=== PATIENT | male | born 1975 | race Caucasian/White ===

== ENCOUNTER 2016-09-21 18:10 | Emergency (ER) | payer BC ==
[2016-09-21] MEDS ORDERED: Ondansetron INJ* 2 MG/ML VIAL IV ONE (19:30)
[2016-09-21] MEDS ORDERED: Diphth/Teta/Acell Pertusis* 0.5 ML VIAL ** FOR 6 WKS TO 7 YRS OLD IM ONE (19:30)
[2016-09-21] MEDS ORDERED: Morphine INJ* 4 MG/ML 1 ML SYRINGE IV ONE (19:30)
[2016-09-21] MEDS ORDERED: NS 0.9% 1000 ML* 1,000 ML IV ONE (19:30)
[2016-09-21 19:42] LABS: Hematocrit 43 % (42-52); Hemoglobin 13.9 g/dl (14.0-18.0); Mean Corpuscular HGB Conc 33 g/dl (31-36); Mean Corpuscular Hemoglobin 28 pg (27-31); Mean Corpuscular Volume 85 fL (80-94); Mean Platelet Volume 8 um3 (7.4-10.4); Red Blood Count 4.98 10^6/ul (4.0-5.4); Red Cell Distribution Width 13 % (10.5-15); White Blood Count 24.3 10^3/ul (3.5-10.8)
[2016-09-21 19:43] LABS: Add Diff/Slide Review? Slide Review Added; Comments Flag Yes
[2016-09-21 19:56] LABS: Albumin 4.5 g/dL (3.2-5.2); BUN/Creatinine Ratio 23.8 (8-20); Calcium 9.9 mg/dL (8.6-10.3); EGFR African American 100.1 (>60); EGFR Non-African American 77.8 (>60); Globulin 2.8 g/dL (2-4); Total Bilirubin 0.4 mg/dL (0.2-1.0); Total Protein 7.3 g/dL (6.4-8.9)
[2016-09-21 19:57] LABS: Potassium 4.2 mmol/L (3.5-5.0)
[2016-09-21] MEDS ORDERED: Tetan/Diph/Pertus SYR(Tdap)* 0.5 ML SYR(BOOSTRIX) use SYR IM ONE (19:59)
[2016-09-21] MEDS ORDERED: Iohexol 300* (CONTRAST) 10 ML SDV IV ONE (20:02)
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
[2016-09-21] MEDS ORDERED: HYDROcodone/ACETAMIN 5-325 MG* 1 TAB PO ONE (22:55)
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
[2016-09-21 23:14] VITALS: BP 133/86
== END 2016-09-21 23:14 | disposition home or self-care (01) ==
LOC: ED 18:10
DX: S42.002A Fracture of unspecified part of left clavicle, initial encounter for closed fracture (principal); S60.512A Abrasion of left hand, initial encounter; V29.9XXA Motorcycle rider (driver) (passenger) injured in unspecified traffic accident, initial encounter; Y93.9 Activity, unspecified; Y92.9 Unspecified place or not applicable; M54.5 Low back pain
CPT/HCPCS: 36415; 70450; 71260; 72125; 72131; 74177; 80053; 85025; 90715; 93005; 99283; J2270; J2405; Q9967

== ENCOUNTER 2018-10-09 16:21 | Inpatient (IN) | payer BC ==
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
[2018-10-09] MEDS ORDERED: LORazepam INJ* 2 MG/ML 1 ML VIAL IM ONE (16:43)
[2018-10-09] MEDS ORDERED: diPHENhydraMINE IV* 50 MG/ML 1 ml VIAL (BENADRYL) IM ONE (16:43)
[2018-10-09] MEDS ORDERED: Haloperidol INJ IV/IM* 5 MG/ML AMP IM ONE (16:43)
[2018-10-09] MEDS ORDERED: Haloperidol TAB* 5 MG PO ONE (16:54)
[2018-10-09] MEDS ORDERED: LORazepam TAB(*) 1 MG PO ONE (16:54)
[2018-10-09] MEDS ORDERED: diPHENhydraMINE PO* 50 MG PO ONE (16:54)
[2018-10-09 17:53] LABS: ABS Basophils 0.1 10^3/ul (0-0.2); ABS Lymphocytes 1.1 10^3/ul (1.0-4.8); ABS Monocytes 0.7 10^3/ul (0-0.8); ABS Neutrophils 12.1 10^3/ul (1.5-7.7); Eosinophil % 0.1 %; Hematocrit 45 % (42-52); Hemoglobin 15.7 g/dL (14.0-18.0); Lymphocyte % 8.1 %; Mean Corpuscular HGB Conc 35 g/dL (31-36); Mean Corpuscular Hemoglobin 30 pg (27-31); Mean Corpuscular Volume 85 fL (80-94); Mean Platelet Volume 7.4 fL (7.4-10.4); Nucleated Red Blood Cells % 0.1; Platelet Count 321 10^3/uL (150-450); Red Blood Count 5.26 10^6 /uL (4.18-5.48); Red Cell Distribution Width 13 % (10-15); White Blood Count 13.9 10^3/uL (3.5-10.8)
[2018-10-09 18:11] LABS: ALT 17 U/L (7-52); AST 16 U/L (13-39); Albumin 4.3 g/dL (3.2-5.2); Albumin/Globulin Ratio 1.6 (1-3); Alkaline Phosphatase 50 U/L (34-104); Anion Gap 10 mmol/L (2-11); BUN/Creatinine Ratio 18.2 (8-20); Blood Urea Nitrogen 18 mg/dL (6-24); CO2 Carbon Dioxide 23 mmol/L (22-32); Calcium 9.6 mg/dL (8.6-10.3); Chloride 104 mmol/L (101-111); EGFR African American 99.8 (>60); EGFR Non-African American 82.5 (>60); Globulin 2.7 g/dL (2-4); Glucose 226 mg/dL (70-100); Potassium 4.2 mmol/L (3.5-5.0); Sodium 137 mmol/L (135-145)
[2018-10-09 18:27] LABS: Acetaminophen < 15 mcg/mL; Alcohol < 10 mg/dL (<10); Salicylate < 2.50 mg/dL (<30)
[2018-10-09 18:42] LABS: TSH (Thyroid Stimulating Horm) 1.47 mcIU/mL (0.34-5.60)
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
--- NOTE | 2018-10-10 08:39 | ED ---
Progress - Progress Note Progress Note: Patient is received as a sign out from Dr. Gonzalez to Dr. Marin at 0700 10/10/18 shift change as a mental health hold pending disposition. 1417 - Patient's case had been reviewed by Dr. Joy, patient will be a voluntary admit to [facility] with a diagnosis of depression. - Consult/PCP Time Called: 19:25 Re-Evaluation - Re-Evaluation First Eval Re-Evaluation Time: 14:17 Comment: MH worker reports that the patient will be a voluntary admit Course/Dx - Diagnoses Provider Diagnoses: Depression - Provider Notifications Discussed Care Of Patient With: Jessica Joy Time Discussed With Above Provider: 14:17 Instructed by Provider To: Other - 1417 - Patient's case had been reviewed by Dr. Joy, patient will be a voluntary admit to [facility] with a diagnosis of depression. Discharge - Sign-Out/Discharge Documenting (check all that apply): Patient Departure - admit - Discharge Plan Condition: Good Disposition: [place]IATRIC [place]AC[place] [place] Billing Disposition and Condition Condition: GOOD Disposition: Psychiatric Facility [facility] [place] - Attestation Statements Document Initiated by Scribe: Yes Documenting Scribe: CHINMAY ROSS Provider For Whom Scribe is Documenting (Include Credential): YENNIFER MARIN MD Scribe Attestation: CHINMAY Harley, raphaelibed for YENNIFER MARIN MD on 10/10/18 at 1443. Scribe Documentation Reviewed: Yes Provider Attestation: The documentation as recorded by the CHINMAY lott accurately reflects the service I personally performed and the decisions made by me, YENNIFER MARIN MD Status of Scribe Document: Viewed
[2018-10-10] MEDS ORDERED: Al Hydrox/Mg Hydrox/Simet LIQ* 30 ML UDC PO PRN (17:54)
--- NOTE | 2018-10-10 18:27 | HP ---
HISTORY AND PHYSICAL: DATE OF ADMISSION: 10/10/18 IDENTIFYING DATA: Vinh is a 42-year-old male with known history of two prior psychiatric hospitalizations in his teenage years who was brought into the emergency room by law enforcement because of some disturbances in his household. 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 There were some disturbances, which Vinh thinks because of his being pissed off at home with his and his called police yesterday. When the police showed up he resisted arrest and was uncooperative with the police and they needed to tase him before they brought in the emergency room. Since he came to the emergency room he was very uncooperative with the evaluation process and the psychotic evaluators were unable to get much information from him other than him stating that his wanted him to get some help and he was brought in here by the police. However, reports from his and a neighbor who happens to be a mental health professional indicated that Vinh has been having some difficulty managing his anger and frustration at home and at school. Vinh reports that in July of this year he threw some papers on the floor when he was really upset with someone and he was suspended from school for that behavior. He does not know exactly what will happen to his job. His believes that he has been having this mood dysregulation even if he was taking his medications. In other words, she believes the medications were not working, so they decided to stop all the medications that he was taking which made it worse. Vinh believes that he has been more depressed and stayed to himself most of the time, not wanting to be bothered by anybody. If anybody did say anything to him he gets upset, in his words he states he gets pissed off and yells at them and he also believes that since he is a big khushbu his screaming and yelling scares everybody. He reported that he has been depressed most of the time with low self-esteem, low self worth, helplessness, hopelessness, and thinking about suicide, but not acting on it. Vinh has a history of attempting suicide at least a couple of times for which he needed hospitalizations in [place] as well as [place] and [facility] I believe. He has been on Effexor for more than 3 years, which apparently stopped working. There is no indication that he was ever put on any mood stabilizer. His stresses include financial problems and some conflict with his related to his dysregulated mood mostly. He has been with his for approximately 20 years and has 3 children. PAST PSYCHIATRIC HISTORY: As mentioned in HPI he had at least 2 prior hospitalizations one in [facility] the other one is in [facility]. SUBSTANCE ABUSE HISTORY: Although, Vinh has a history of alcohol use disorder in the past. He has not been drinking since 2010 and maintained his sobriety. Denies using any drugs. PAST MEDICAL HISTORY: It is remarkable for insulin-dependent diabetes mellitus for which he takes metformin and glipizide also he is on Lantus. ALLERGIES: No known drug allergies. FAMILY PSYCHIATRIC HISTORY: Vinh reports that one of his older sisters, who is the oldest of all, suffers from bipolar and is undergoing treatment. He also believes his kids may have shown some signs and symptoms of bipolarity. PERSONAL AND SOCIAL HISTORY: Vinh grew up in [place] [place] [facility] after finishing his master's with math major. 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 He has been for more than 16 years and has 3 children 9, 11, and 14. He reports that his marriage is fine, no issues with that, only problem is that the potential for loss of his job because of his mood problems and fear that he might go into financial problem. He is getting paid for now until a decision is made about what the school will do. He denies any legal problems. PHYSICAL EXAMINATION Physical exam was not performed as Vinh still in the emergency room. I reviewed the physicals and labs done in the emergency room, which were pretty much unremarkable except for his lab shows a high WBC count of 13.9. His vitals taken in the emergency room shows a blood pressure of 188/141 with a pulse rate of 125 and respiration 20. At this time, I will ask the ED doctors to address his blood pressure and high blood sugar problems that hvets been without treatment. MENTAL STATUS EXAMINATION: Vinh was a appropriately dressed, neatly groomed with shaven head 42-year-old male who appears to be of his state stated age. He is alert and oriented to time, place, and person. Describes his mood as depressed, observed affect appears to be dysphoric and irritable. Makes very poor eye contact. Speech is soft and slow, but goal directed. Denies any allegations, delusion, current suicidal or homicidal ideations. His intelligence appears to be average as evidenced by his educational background vocabulary and fund of knowledge. Memory and functions are intact in all spheres. His insight and judgment appears to be poor. 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 His neighbors also called to report that Vinh has been experiencing some mood swings and anger outbursts scaring his family members and needed to be treated for. He is being hospitalized for further evaluation and stabilization of his mood dysregulation. DIAGNOSTIC IMPRESSION: Major depressive disorder, recurrent severe without psychotic creatures, rule out bipolar disorder. PHYSICAL DIAGNOSES: 1. Insulin-dependent diabetes mellitus. 2. Essential hypertension. TREATMENT RECOMMENDATIONS: Vinh will remain hospitalized on behavioral science unit for his and others' safety. Supportive milieu, individual, and group therapy will be initiated. His code status will remain full. I have not had a chance to talk to him about any change of medications and I will defer his medication to his assigned psychiatrist. If I have a time to talk to him after he comes to the unit, I will definitely start him on something most possibly one of those which will not trigger his bipolar symptoms. [id number]/CPS #: [id number] [facility] CENTERMaria Alejandra
[2018-10-10] MEDS: Insulin GLARGINE(*) 1 UNITS UNIT SUBCUT SCH (20:59)
[2018-10-11] MEDS: Acetaminophen TAB* 325 MG PO PRN (06:17)
[2018-10-11 09:11] LABS: HDL Cholesterol 29.9 mg/dL
--- NOTE | 2018-10-11 11:31 | PN ---
BSU: Group Therapy Note - Service Type Service Type: [id number] Group Psychotherapy - Cognitive Behavioral Group Therapy ( CBT):Patient was attentive and participatory in CBT programming this morning, and remained in good behavioral control. Patient expressed positive insights regarding relevant treatment interventions and goals.
[2018-10-11] MEDS: Vitamin THERAPEUTIC TAB PO SCH (12:01)
--- NOTE | 2018-10-11 14:27 | PN ---
Subjective - Subjective Date of Service: 10/11/18 Service Type: 02171 Hosp care 25 min moderate complexity Subjective: Patient noted to pace about unit and do push-ups in an alcove. He is pleasant upon approach, participates in conversation. Patient reports long history of agitation and difficulty with anger outbursts since adolescence. He endorses periods of decreased need of sleep and increased activities. He reports being diagnosed with "atypical bipolar" in [address] Rogers. He reports taking aripiprazole for over a year but stopped when diagnosed with diabetes mellitus. Patient states he continued with venlafaxine up to 225mg for the past 3 years but stopped last july. He goes on to describe that "it wasn't working." He reports he experiences mood swings, depressed mood, isolation, hypersomnia and anhedonia. Patient notified of a1c of 10.8, states this is improved from last reading of 12. He agrees to titration of Latuda, notified of improved metabolic profile compared to aripiprazole. We also discussed use of clonidine prn anxiety. Objective - General Observations Appearance: Well Groomed Stature: WNL Posture: Slumped Eye Contact: Intermittent Behavior/Activity: Peculiar - Interaction Observations Attitude Towards Examiner: Cooperative Stated Mood: Irritable Affect: Restricted Speech Pattern/Tone: Clear, Appropriate, Quiet Volume Thought Process: Impoverished Thought Content: Depressive Thought Process: Lethality: Passive Wish Hallucination Type: Denies Delusion Type: Denies - Cognitive Function Orientation: A&O x 4 Level of Consciousness: Alert Cognition: WNL Estimated Intelligence: Normal Insight: WNL Judgment Within Normal Limits: No Ability to Make Reasonable Decisions: Moderately Impaired - Medication Compliance Cooperative with Inpatient Medication Regimen: Yes - Group Participation Participates in Group Activities: Yes Assessment - Assessment Merits Inpatient Hospitalization: For Immediate Safety, For Stabilization Inpatient DSM-V Dx: F31.9 Clinical Impression: 42yo white male, with children, domiciled, employed with history 2-3 previous psychiatric hospitalizations due to suicide attempts who presented to ED via police after phoned due to anger outbursts at home and concern for suicidality. He merits hospitalization for immediate safety and stabilization. Plan - Plan Treatment Plan: Name: RAMON MOONEY Birthdate: 1975 [id number] continue acute intensive psychiatric treatment. verified medications from Dr Ramirez's office: glipizide 5mg TID with meals, metformin 1000mg BID and lantus 50unit daily. start lurasidone 20mg with dinner, clonidine 0.1mg BID prn anxiety/agitation. obtain MMPI for diagnostic clarification. discharge planning to include family and outpatient providers Continued Medication Management: Start Medication Medications: Current Medications Acetaminophen (Tylenol Tab*) 650 mg PO Q4H PRN PRN Reason: PAIN or TEMP > 101 F Last Admin: 10/11/18 06:17 Dose: 650 mg Al Hydrox/Mg Hydrox/Simethicone (Maalox Plus*) 30 ml PO Q4H PRN PRN Reason: INDIGESTION Clonidine HCl (Catapres Tab*) 0.1 mg PO BID PRN PRN Reason: AGITATION/ANXIETY Glipizide (Glucotrol Tab*) 5 mg PO TID WITH MEALS [facility] Insulin Glargine (Lantus(*)) 50 units SUBCUT BEDTIME [facility] Last Admin: 10/10/18 20:59 Dose: 50 unit Lurasidone HCl (Latuda) 20 mg PO 1700 [facility] Metformin HCl (Glucophage*) 1,000 mg PO BID [facility] Multivitamins (Theragran Tab*) 1 tab PO DAILY [facility] Last Admin: 10/11/18 12:01 Dose: Not Given - Discharge Plan Discharge Plan: Inpatient Hospitalization
[2018-10-11] MEDS: glipiZIDE TAB* 5 MG PO SCH (16:47)
[2018-10-11] MEDS: Lurasidone(*) 20 MG TAB PO SCH (17:27)
[2018-10-11] MEDS: Insulin GLARGINE(*) 1 UNITS UNIT SUBCUT SCH (20:59)
[2018-10-11] MEDS: metFORMIN* 1,000 MG TAB PO SCH (21:00)
[2018-10-12] MEDS: metFORMIN* 1,000 MG TAB PO SCH ×2 (09:03→20:27)
[2018-10-12] MEDS: Vitamin THERAPEUTIC TAB PO SCH (09:03)
[2018-10-12] MEDS: glipiZIDE TAB* 5 MG PO SCH ×3 (09:03→17:00)
[2018-10-12] MEDS: cloNIDine TAB* 0.1 MG PO PRN (12:27)
--- NOTE | 2018-10-12 15:07 | PN ---
Subjective - Subjective Date of Service: 10/12/18 Service Type: [id number] Hosp care 15 min low complexity Subjective: Patient reports mild nausea today and that he slept better than he has been. He endorses anxiolytic effect with prn clonidine. patient endorses depressed mood with irritability. Patient identifies that anger outbursts have been more difficult to control over the years. He states that he typically retreats to the barn to "break stuff" then this escalates when he is angry that he broke his wood-working projects. Objective - General Observations Appearance: Well Groomed Stature: Overweight Posture: WNL Eye Contact: Intermittent Behavior/Activity: WNL - Interaction Observations Attitude Towards Examiner: Cooperative Stated Mood: Dysphoric, Irritable Affect: Restricted Speech Pattern/Tone: Clear, Quiet Volume Thought Process: Coherent Perception: WNL Thought Content: Depressive Thought Process: Lethality: Passive Wish Hallucination Type: None Delusion Type: None - Cognitive Function Orientation: A&O x 4 Level of Consciousness: Alert Cognition: WNL Estimated Intelligence: Normal Insight: WNL Judgment Within Normal Limits: Yes Ability to Make Reasonable Decisions: Mildly Impaired - Medication Compliance Cooperative with Inpatient Medication Regimen: Yes - Group Participation Participates in Group Activities: Yes Assessment - Assessment Merits Inpatient Hospitalization: For Immediate Safety, For Stabilization Inpatient DSM-V Dx: F31.9 Clinical Impression: 42yo white male, with children, domiciled, employed with history 2-3 previous psychiatric hospitalizations due to suicide attempts who presented to ED via police after phoned due to anger outbursts at home and concern for suicidality. He merits hospitalization for immediate safety and stabilization. Plan - Plan Treatment Plan: Name: RAMON MOONEY Birthdate: 1975 [id number] continue acute intensive psychiatric treatment. verified medications from Dr Ramirez's office: glipizide 5mg TID with meals, metformin 1000mg BID and lantus 50unit daily. continue lurasidone 20mg with dinner, clonidine 0.1mg BID prn anxiety/ agitation. consider depakote. discharge planning to include family and outpatient providers Continued Medication Management: Consider Medication Medications: Current Medications Acetaminophen (Tylenol Tab*) 650 mg PO Q4H PRN PRN Reason: PAIN or TEMP > 101 F Last Admin: 10/11/18 06:17 Dose: 650 mg Al Hydrox/Mg Hydrox/Simethicone (Maalox Plus*) 30 ml PO Q4H PRN PRN Reason: INDIGESTION Clonidine HCl (Catapres Tab*) 0.1 mg PO BID PRN PRN Reason: AGITATION/ANXIETY Last Admin: 10/12/18 12:27 Dose: 0.1 mg Glipizide (Glucotrol Tab*) 5 mg PO TID WITH MEALS [facility] Last Admin: 10/12/18 12:23 Dose: 5 mg Insulin Glargine (Lantus(*)) 50 units SUBCUT BEDTIME [facility] Last Admin: 10/11/18 20:59 Dose: 50 unit Lurasidone HCl (Latuda) 20 mg PO 1700 [facility] Last Admin: 10/11/18 17:27 Dose: 20 mg Metformin HCl (Glucophage*) 1,000 mg PO BID [facility] Last Admin: 10/12/18 09:03 Dose: 1,000 mg Multivitamins (Theragran Tab*) 1 tab PO DAILY [facility] Last Admin: 10/12/18 09:03 Dose: Not Given - Discharge Plan Discharge Plan: Outpatient Follow Up
[2018-10-12] MEDS: Lurasidone(*) 20 MG TAB PO SCH (17:00)
[2018-10-12] MEDS: Insulin GLARGINE(*) 1 UNITS UNIT SUBCUT SCH (21:18)
[2018-10-13] MEDS: glipiZIDE TAB* 5 MG PO SCH ×3 (07:38→16:56)
[2018-10-13] MEDS: metFORMIN* 1,000 MG TAB PO SCH ×2 (09:01→21:20)
[2018-10-13] MEDS: Vitamin THERAPEUTIC TAB PO SCH (09:01)
--- NOTE | 2018-10-13 13:39 | PN ---
Subjective - Subjective Date of Service: 10/13/18 Service Type: [id number] Hosp care 15 min low complexity Subjective: patient reports noticing worsening mood midday. He states he utilized various techniques that he has known about and is proud of himself for actually putting them into practice. He reports sleeping well and benefitting from interactions with others. He c/o nausea and loose stools, denies these are problematic and expects these to be transient side effects. Patient agrees to titrate lurasidone dose. Objective - General Observations Appearance: Well Groomed Stature: Overweight Posture: Slumped Eye Contact: Average Behavior/Activity: WNL - Interaction Observations Attitude Towards Examiner: Cooperative Stated Mood: Dysphoric Affect: Full Speech Pattern/Tone: Clear, Appropriate, Normal Volume Thought Process: Coherent, Goal Directed Perception: WNL Thought Content: Depressive, Self-Deprecatory Thought Process: Lethality: Passive Wish Hallucination Type: Denies Delusion Type: Denies - Cognitive Function Orientation: A&O x 4 Level of Consciousness: Alert Cognition: WNL Estimated Intelligence: Normal Insight: WNL Judgment Within Normal Limits: Yes Ability to Make Reasonable Decisions: Moderately Impaired - Medication Compliance Cooperative with Inpatient Medication Regimen: Yes - Group Participation Participates in Group Activities: Yes Assessment - Assessment Merits Inpatient Hospitalization: For Immediate Safety, For Stabilization, For Discharge Planning, Pending Safe DC Plan Inpatient DSM-V Dx: F31.9 Clinical Impression: 42yo white male, with children, domiciled, employed with history 2-3 previous psychiatric hospitalizations due to suicide attempts who presented to ED via police after phoned due to anger outbursts at home and concern for suicidality. He merits hospitalization for immediate safety and stabilization. Plan - Plan Treatment Plan: Name: RAMON MOONEY Birthdate: 1975 [id number] continue acute intensive psychiatric treatment. verified medications from Dr Ramirez's office: glipizide 5mg TID with meals, metformin 1000mg BID and lantus 50unit daily. increase lurasidone to 40mg with dinner; continue clonidine 0.1mg BID prn anxiety/agitation. discharge planning to include referral to [facility]. Continued Medication Management: Start Medication Medications: Current Medications Acetaminophen (Tylenol Tab*) 650 mg PO Q4H PRN PRN Reason: PAIN or TEMP > 101 F Last Admin: 10/11/18 06:17 Dose: 650 mg Al Hydrox/Mg Hydrox/Simethicone (Maalox Plus*) 30 ml PO Q4H PRN PRN Reason: INDIGESTION Clonidine HCl (Catapres Tab*) 0.1 mg PO BID PRN PRN Reason: AGITATION/ANXIETY Last Admin: 10/12/18 12:27 Dose: 0.1 mg Glipizide (Glucotrol Tab*) 5 mg PO TID WITH MEALS [facility] Last Admin: 10/13/18 12:03 Dose: 5 mg Insulin Glargine (Lantus(*)) 50 units SUBCUT BEDTIME [facility] Last Admin: 10/12/18 21:18 Dose: 50 unit Lurasidone HCl (Latuda) 40 mg PO 1700 [facility] Metformin HCl (Glucophage*) 1,000 mg PO BID [facility] Last Admin: 10/13/18 09:01 Dose: 1,000 mg Multivitamins (Theragran Tab*) 1 tab PO DAILY [facility] Last Admin: 10/13/18 09:01 Dose: Not Given - Discharge Plan Discharge Plan: Inpatient Hospitalization
[2018-10-13] MEDS: Lurasidone(*) 40 MG TAB PO SCH (17:16)
[2018-10-13] MEDS: Insulin GLARGINE(*) 1 UNITS UNIT SUBCUT SCH (21:36)
[2018-10-14] MEDS: glipiZIDE TAB* 5 MG PO SCH ×3 (07:55→17:24)
[2018-10-14] MEDS: metFORMIN* 1,000 MG TAB PO SCH ×2 (07:55→20:24)
[2018-10-14] MEDS: Vitamin THERAPEUTIC TAB PO SCH (07:58)
[2018-10-14] MEDS: cloNIDine TAB* 0.1 MG PO PRN (12:08)
--- NOTE | 2018-10-14 13:15 | PN ---
Subjective - Subjective Date of Service: 10/14/18 Service Type: [id number] Hosp care 15 min low complexity Subjective: Patient is euthymic and interactive. He is tolerating increase in lurasidone without complaints. He has agreed to a referral to a partial hospitalization program. Objective - General Observations Appearance: Well Groomed Stature: WNL Posture: WNL Eye Contact: Average - Interaction Observations Attitude Towards Examiner: Cooperative, Anxious Stated Mood: Euthymic Affect: Bright Speech Pattern/Tone: Clear, Appropriate, Normal Volume Thought Process: Coherent, Goal Directed Perception: WNL Thought Content: Depressive Hallucination Type: None Delusion Type: None - Cognitive Function Orientation: A&O x 4 Level of Consciousness: Alert Cognition: WNL Estimated Intelligence: Normal Insight: WNL Judgment Within Normal Limits: Yes Ability to Make Reasonable Decisions: Moderately Impaired - Medication Compliance Cooperative with Inpatient Medication Regimen: Yes - Group Participation Participates in Group Activities: Yes Assessment - Assessment Inpatient DSM-V Dx: F31.9 Clinical Impression: 42yo white male, with children, domiciled, employed with history 2-3 previous psychiatric hospitalizations due to suicide attempts who presented to ED via police after phoned due to anger outbursts at home and concern for suicidality. He merits hospitalization for immediate safety and stabilization. He is at risk for harm to self and others if discharged prior to admission to partial hospitalization program. Plan - Plan Treatment Plan: Name: RAMON MOONEY Birthdate: 1975 [id number] continue acute intensive psychiatric treatment. verified medications from Dr Ramirez's office: glipizide 5mg TID with meals, metformin 1000mg BID and lantus 50unit daily. increase lurasidone to 40mg with dinner; continue clonidine 0.1mg BID prn anxiety/agitation. discharge pending referral to [facility]. Continued Medication Management: Start Medication Medications: Current Medications Acetaminophen (Tylenol Tab*) 650 mg PO Q4H PRN PRN Reason: PAIN or TEMP > 101 F Last Admin: 10/11/18 06:17 Dose: 650 mg Al Hydrox/Mg Hydrox/Simethicone (Maalox Plus*) 30 ml PO Q4H PRN PRN Reason: INDIGESTION Clonidine HCl (Catapres Tab*) 0.1 mg PO BID PRN PRN Reason: AGITATION/ANXIETY Last Admin: 10/14/18 12:08 Dose: 0.1 mg Glipizide (Glucotrol Tab*) 5 mg PO TID WITH MEALS [facility] Last Admin: 10/14/18 12:08 Dose: 5 mg Insulin Glargine (Lantus(*)) 50 units SUBCUT BEDTIME [facility] Last Admin: 10/13/18 21:36 Dose: 50 unit Lurasidone HCl (Latuda) 40 mg PO 1700 [facility] Last Admin: 10/13/18 17:16 Dose: 40 mg Metformin HCl (Glucophage*) 1,000 mg PO BID [facility] Last Admin: 10/14/18 07:55 Dose: 1,000 mg Multivitamins (Theragran Tab*) 1 tab PO DAILY [facility] Last Admin: 10/14/18 07:58 Dose: Not Given - Discharge Plan Discharge Plan: Inpatient Hospitalization
--- NOTE | 2018-10-14 16:16 | PN ---
BSU: Group Therapy Note - Service Type Service Type: [id number] Group Psychotherapy - Group Participation Patient Participating in Group: Yes Level of Group Participation: Attentive, Spontaneously Participate Relatedness to Group: Well Related - Vinh was an attentive and participatory group member. He took notes and offered good feedback.
[2018-10-14] MEDS: Lurasidone(*) 40 MG TAB PO SCH (17:24)
[2018-10-14] MEDS: Insulin GLARGINE(*) 1 UNITS UNIT SUBCUT SCH (20:23)
[2018-10-15] MEDS: metFORMIN* 1,000 MG TAB PO SCH ×2 (08:22→20:29)
[2018-10-15] MEDS: glipiZIDE TAB* 5 MG PO SCH ×3 (08:22→17:03)
[2018-10-15] MEDS: Vitamin THERAPEUTIC TAB PO SCH (08:23)
--- NOTE | 2018-10-15 12:04 | PN ---
BSU: Group Therapy Note - Service Type Service Type: [id number] Group Psychotherapy - Cognitive Behavioral Group Therapy ( CBT):Patient was attentive and participatory in CBT programming this morning, and remained in good behavioral control. Patient expressed positive insights regarding relevant treatment interventions and goals.
--- NOTE | 2018-10-15 14:05 | CONS ---
PSYCHOLOGICAL REPORT: DATE OF CONSULT: 10/15/18 PROCEDURE CODE: [id number] REASON FOR REFERRAL: Vinh was referred for psychological testing secondary to concerns regarding possible bipolar condition as well as assessing severity of depression. TEST ADMINISTERED: Vinh completed the [place] Multiphasic Personality Inventory - 2 (MMPI-2), and was given feedback in individual conversation regarding testing results. Vnih has also been seen daily in cognitive behavioral group psychotherapies led by this specifications writer since his admission. 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 He was hospitalized after his called the police who intervened to make a mental health evaluation and subsequent arrest taking him to this facility's ED after he had resisted arrest and was tased. He was initially uncooperative in the emergency department, but eventually was able to develop and maintain therapeutic rapport with staff and peers. His initial presentation was withdrawn and irritable, but as his treatment has progressed he is much more affable and interactive with both staff and peers. Currently, he initiates a thoughtful conversation and is attentive in group therapy process, taking detailed notes and asking appropriate questions. He relates presented materials to his own experience in a thoughtful and insightful fashion and is able to maintain clinical interest even when peers sometimes derail conservations with some dramatic comments or behaviors. Vinh has 3 children between the ages of 10 and 16, and he describes experiencing recurring difficulties with anger management particularly. This has eroded he and his 's relationship to some degree where she is interested in having Vinh attend an intensive outpatient treatment program after he is discharged from this facility. Currently, efforts are being made to have him go to [facility] intensive outpatient treatment facility where he anticipates remaining for approximately 2 weeks' time. This is his third psychiatric admission with the first occurring when he was 16 years of age at [facility] and latter occurring in his adult years at [facility]. In clinical programing, Vinh particularly relates discussion addressing anger management and relationship conflict, and also initiated feedback with his specifications writer discussing how the topic of slow thinking has resonated with him and he is trying to be more mindful about this as a process. This seems particularly insightful in the context of managing anger in better ways. TEST RESULTS: Vinh has mild elevations on 2 to 3 emotional stress indicators on the validity scales with his FB score approaching 80. Subsequently, he elevates both depression and anxiety in a very similar level on a clinical indices with lesser elevations occurring on schizophrenia and social introversion scales. The latter elevations were discussed in the context of relational difficulties and feeling apart and alienated from social supports. This resonated with Vinh as he described preference for keeping to himself and not tending to initiate much social contact other than with those of his family. There are no concerns in testing regarding a bipolar process nor are the anger scales particularly elevated. I have discussed and addressed irritability in context of depression as a more likely etiology of emotional disruptions. IMPRESSIONS AND RECOMMENDATIONS: Vinh's primary stress occurs in the context of repairing his marriage. Although he is concerned about his employment status in [employer], he is more concerned with how he would proceed if his were going to separate. He describes being very hopeful that this will not happen and how that would be very difficult for him in the context of displacing him from his current role as father. Vinh impresses as having benefited from continuing hospitalization in that his affect has improved steadily and appears to be stabilizing with continued compliance with medications and adherence to group psychotherapies. He describes benefiting from the conservations in the group context and is helpful that he can eventually reconcile with his . He impresses as being very future oriented currently and identifies positive roles in his current life as well as aspirations in future goal planning. Diagnostic impression supports a major depressive episode with concerns regarding impulse control. [id number]/[facility] #: [id number] FERNANDO
[2018-10-15] MEDS: Acetaminophen TAB* 325 MG PO PRN (15:06)
--- NOTE | 2018-10-15 15:59 | PN ---
Subjective - Subjective Date of Service: 10/15/18 Service Type: 63500 Hosp care 15 min low complexity Subjective: Ramon is in some pain today, reporting a knot in his back that he is rolling against the wall against a rolled up sock in an effort to alleviate the pain. Ramon reports that he is doing well. He feels weird about his not wanting him home, but he also acknowledges that this is a new kind of feeling and that the lack of anger is new and different. He tried to explore the root emotion and practiced mindfulness. He is waiting to hear back about a PHP at [facility]. Objective - General Observations Appearance: Neat Appears Stated Age: Yes Stature: Overweight Posture: WNL Eye Contact: Average Behavior/Activity: WNL - Interaction Observations Attitude Towards Examiner: Cooperative Stated Mood: Dysphoric, Anxious Affect: Full Speech Pattern/Tone: Clear Thought Process: Coherent Perception: WNL Thought Content: WNL, Preoccupation/Ruminations Hallucination Type: None Delusion Type: None - Cognitive Function Orientation: A&O x 4 Level of Consciousness: Awake, Alert, Appropriate Cognition: WNL Estimated Intelligence: Normal Insight: WNL Judgment Within Normal Limits: Yes - Medication Compliance Cooperative with Inpatient Medication Regimen: Yes - Group Participation Participates in Group Activities: Yes Assessment - Assessment Merits Inpatient Hospitalization: For Immediate Safety Inpatient DSM-V Dx: F31.9 Clinical Impression: 42yo white male, with children, domiciled, employed with history 2-3 previous psychiatric hospitalizations due to suicide attempts who presented to ED via police after phoned due to anger outbursts at home and concern for suicidality. He merits hospitalization for immediate safety and stabilization. He is at risk for harm to self and others if discharged prior to admission to partial hospitalization program. Plan - Plan Treatment Plan: Name: RAMON MOONEY Birthdate: 1975 [id number] continue acute intensive psychiatric treatment. verified medications from Dr Ramirez's office: glipizide 5mg TID with meals, metformin 1000mg BID and lantus 50unit daily. increase lurasidone to 40mg with dinner; continue clonidine 0.1mg BID prn anxiety/agitation. discharge pending referral to PHP. 10/15/18 Ramon is waiting for PHP confirmation. He is doing well, anticipating the next steps in his life. Continued Medication Management: Different Medication Medications: Current Medications Acetaminophen (Tylenol Tab*) 650 mg PO Q4H PRN PRN Reason: PAIN or TEMP > 101 F Last Admin: 10/15/18 15:06 Dose: 650 mg Al Hydrox/Mg Hydrox/Simethicone (Maalox Plus*) 30 ml PO Q4H PRN PRN Reason: INDIGESTION Clonidine HCl (Catapres Tab*) 0.1 mg PO BID PRN PRN Reason: AGITATION/ANXIETY Last Admin: 10/14/18 12:08 Dose: 0.1 mg Glipizide (Glucotrol Tab*) 5 mg PO TID WITH MEALS [facility] Last Admin: 10/15/18 12:00 Dose: 5 mg Insulin Glargine (Lantus(*)) 50 units SUBCUT BEDTIME [facility] Last Admin: 10/14/18 20:23 Dose: 50 unit Lurasidone HCl (Latuda) 40 mg PO 1700 [facility] Last Admin: 10/14/18 17:24 Dose: 40 mg Metformin HCl (Glucophage*) 1,000 mg PO BID [facility] Last Admin: 10/15/18 08:22 Dose: 1,000 mg Multivitamins (Theragran Tab*) 1 tab PO DAILY [facility] Last Admin: 10/15/18 08:23 Dose: Not Given
[2018-10-15] MEDS: Lurasidone(*) 40 MG TAB PO SCH (17:03)
[2018-10-15] MEDS: cloNIDine TAB* 0.1 MG PO PRN (20:29)
[2018-10-15] MEDS: Insulin GLARGINE(*) 1 UNITS UNIT SUBCUT SCH (20:37)
[2018-10-16] MEDS: metFORMIN* 1,000 MG TAB PO SCH ×2 (08:39→20:06)
[2018-10-16] MEDS: glipiZIDE TAB* 5 MG PO SCH ×3 (08:39→16:59)
[2018-10-16] MEDS: Vitamin THERAPEUTIC TAB PO SCH (08:40)
[2018-10-16] MEDS: Lurasidone(*) 40 MG TAB PO SCH (16:59)
[2018-10-16] MEDS: cloNIDine TAB* 0.1 MG PO PRN (20:06)
[2018-10-16] MEDS: Insulin GLARGINE(*) 1 UNITS UNIT SUBCUT SCH (20:06)
[2018-10-17] MEDS: Acetaminophen TAB* 325 MG PO PRN (07:15)
[2018-10-17] MEDS: Vitamin THERAPEUTIC TAB PO SCH (08:35)
[2018-10-17] MEDS: metFORMIN* 1,000 MG TAB PO SCH ×2 (08:35→20:06)
[2018-10-17] MEDS: glipiZIDE TAB* 5 MG PO SCH ×3 (08:35→18:12)
[2018-10-17] MEDS: Lurasidone(*) 40 MG TAB PO SCH (18:12)
[2018-10-17] MEDS: Insulin GLARGINE(*) 1 UNITS UNIT SUBCUT SCH (20:05)
[2018-10-18] MEDS: Vitamin THERAPEUTIC TAB PO SCH (08:26)
[2018-10-18] MEDS: metFORMIN* 1,000 MG TAB PO SCH (08:26)
[2018-10-18] MEDS: glipiZIDE TAB* 5 MG PO SCH ×2 (08:27→11:51)
[2018-10-18 11:04] VITALS: BP 137/93
--- NOTE | 2018-10-18 11:28 | DCNOTE ---
Subjective - Subjective Service Types: 35513 Hosp DC Day Mgmt simple under 30 min Discharge Date: 10/18/18 Subjective: Vinh is agreeable to discharge. He is preparing to continue his treatment in an intensive outpatient setting. He states he has benefitted from his stay on the [facility] and is eager for discharge. Objective - General Observations Appearance: Neat Appears Stated Age: Yes Stature: Overweight Posture: WNL Eye Contact: Average Behavior/Activity: WNL - Interaction Observations Attitude Towards Examiner: Cooperative Stated Mood: Euthymic, Anxious Affect: Full Speech Pattern/Tone: Clear Thought Process: Coherent Perception: WNL Thought Content: WNL Hallucination Type: None Delusion Type: None - Cognitive Function Orientation: A&O x 4 Level of Consciousness: Awake, Alert, Appropriate Cognition: WNL Estimated Intelligence: Normal Insight: WNL - Medication Compliance Cooperative with Inpatient Medication Regimen: Yes - Group Participation Participates in Group Activities: Yes DC Assessment - Assessment Clinical Impression: 42yo white male, with children, domiciled, employed with history 2-3 previous psychiatric hospitalizations due to suicide attempts who presented to ED via police after phoned due to anger outbursts at home and concern for suicidality. He merits hospitalization for immediate safety and stabilization. He is at risk for harm to self and others if discharged prior to admission to partial hospitalization program. Merits Inpatient Hospitalization: No Clear for Discharge: Adequate Clinical Respons Inpatient DSM-V Dx: F31.9 Discharge Planning - Discharge Planning Discharge Plan: Outpatient Follow Up Outpatient Program: [facility] Recommendations for Continuing Care: Medication Management, Psychotherapy, Routine Metabolic Monitoring, Primary Care Followup Medications: Current Medications Acetaminophen (Tylenol Tab*) 650 mg PO Q4H PRN PRN Reason: PAIN or TEMP > 101 F Last Admin: 10/17/18 07:15 Dose: 650 mg Al Hydrox/Mg Hydrox/Simethicone (Maalox Plus*) 30 ml PO Q4H PRN PRN Reason: INDIGESTION Clonidine HCl (Catapres Tab*) 0.1 mg PO BID PRN PRN Reason: AGITATION/ANXIETY Last Admin: 10/16/18 20:06 Dose: 0.1 mg Glipizide (Glucotrol Tab*) 5 mg PO TID WITH MEALS [facility] Last Admin: 10/18/18 08:27 Dose: 5 mg Insulin Glargine (Lantus(*)) 50 units SUBCUT BEDTIME [facility] Last Admin: 10/17/18 20:05 Dose: 50 unit Lurasidone HCl (Latuda) 40 mg PO 1700 [facility] Last Admin: 10/17/18 18:12 Dose: 40 mg Metformin HCl (Glucophage*) 1,000 mg PO BID [facility] Last Admin: 10/18/18 08:26 Dose: 1,000 mg Multivitamins (Theragran Tab*) 1 tab PO DAILY [facility] Last Admin: 10/18/18 08:26 Dose: 1 tab Discharge Planning: Prescriptions provided for discharge [] Yes [] No Follow up care details as per social work arrangements. Patient response to discharge plan: [] eager for discharge [] agreeable with discharge plan [] ambivalent about discharge [] disagrees with discharge today
--- NOTE | 2018-10-20 21:30 | DS ---
CC: Partial Hospitalization Program of [facility]; Harry Kim MD; [facility] in [facility]; Dr. Ramirez DISCHARGE SUMMARY: DATE OF ADMISSION: 10/10/18 DATE OF DISCHARGE: 10/18/18 SUPERVISING PSYCHIATRIST: Dr. Yimi Henriquez. DISCHARGE DIAGNOSES: 1. Unspecified bipolar disorder. 2. Insulin-dependent diabetes mellitus. 3. Essential hypertension. CONDITION AT THE TIME OF DISCHARGE: Improved. The patient is euthymic with bright affect. He repo rts improved mood. He denies suicidal ideation. He is agreeable to discharge and to continue treatm ent in an [facility]. He is appreciative of services rendered. The patient is well related. He has been s afe on all checks and participating in unit programming. He is noted to positively interact with [facility] staff and peers. The patient reports plan to live with his mother temporarily until undergoing int ensive outpatient treatment. He is discharged to his mother's home in [place]. MENTAL STATUS EXAM: Vinh is a 42-year-old white male, well groomed, with nearly shaved head and a full muro. He appears stated age. He is casually dressed in his own clothing. The patient is faisal rt and oriented x3. Eye contact is good. Concentration is good. Memory 3/3. Speech is soft, articu late, and spontaneous. The patient denies auditory or visual hallucinations and there are no observed perceptual disturbances. He denies suicidal ideation, HI or . He denies passive wish. Ins ight and judgment are good. INSTRUCTIONS GIVEN TO PATIENT: A. Medications: The patient was trialed on lurasidone 40 mg while in the hospital; however, this was denied by insurance. We will now try aripiprazole 5 mg p.o. daily a long with clonidine 0.1 mg p.o. b.i.d. for essential hypertension. The following medications can be resumed through neon tube bender, Dr. Ramirez. 1. Glipizide 5 mg p.o. t.i.d. with meals. 2. Lantus 50 units subcutaneous nightly. 3. Metformin 1000 mg p.o. b.i.d. B. Diet: Diabetic diet. C. Activity: Ambulation as tolerated. Tobacco cessation is not applicable. There are no pending la bs or diagnostic studies. D. Followup Care: The patient is going to follow up with [facility] while a waiting intake in November at the partial hospitalization program in [place]. He will engage in [facility] in [facility] while awaiting partial hospitalization as well. He can follow up with his primary care provider, Dr. Kim as needed and neon tube bender, Dr. Ramirez as needed. E. Substance use followup is not applicable. HOSPITAL COURSE: Part A: Reason for admission: The patient presented to the emergency department vi a police after his called them to the home. The patient has been increasingly agitated and irri table resulting in destruction in the home. Apparently, the patient was passively resisting arrest wh en the police arrived to the home, and they tased him before coming to the emergency room. When he a rrived to the emergency room, he was very uncooperative with the evaluation process and was selective ly mute. 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 His believes he has been having mood dysregulation even while taking medications. The patient jeanmarie gallardo decided to stop taking venlafaxine that he has been prescribed for many years. Since that time, jeanmarie mcmahon has been more depressed, seclusive. He is easily agitated and often yells at people. The patient reports he has been depressed most of the time with low self- esteem, low self-worth, helplessness, a nd hopelessness. The patient endorses suicidal ideation, but denies recent attempts. He has a histo ry of attempting suicide at least twice, for which he has been hospitalized in [place], [facility], and [place]. Part B. Psychiatric treatment rendered: The patient was admitted to the adult behavioral services [facility] on voluntary status. Code status was full. He was placed on 15-minute checks for his safety. Jeanmarie mcmahon was encouraged to participate in supportive milieu, individual sessions with staff, and psychoeduca tional groups. He did participate actively in programming, and per staff, he was a positive addition to groups. The patient was more participatory with interview after the first day of admission. He reports a long history of agitation and difficulty with anger outbursts since adolescence. He report s periods of decreased need for sleep and increased activities. He reports being diagnosed with "aty pical bipolar" in [address] Rogers. He reports taking aripiprazole for over a year, but stopped when d iagnosed with diabetes. He states he continued with venlafaxine up to 225 mg for the past 3 years, b ut stopped last July. He goes on to describe "it was not working." He reports he experiences mood swings, depressed moods, isolation, hypersomnia, and anhedonia. He agreed to titration of lurasidone especially due to improved metabolic profile compared to aripiprazole. He responded well to p.r.n. use of clonidine for anxiety. While on the unit, we obtained laboratory data, WBC of 13.9, absolute neutrophils 12.1, otherwise unr emarkable for the CBC. Chemistry: A1c of 10.8. The patient reported this was actually improved fro m a recent level of 12. His triglycerides were 200, cholesterol 235. We reinstated daily fingerstic ks as he had not been compliant with these at home. He also had been inconsistent with Lantus medica tion. Toxicology was negative for negative for salicylates, acetaminophen, or alcohol. The patient also completed an MMPI, which was evaluated by psychologist, Isidoro Espinoza. Please see consultation re port by Isidoro Espinoza, Ph.D. No other consults or diagnostic testing was done. The patient worked well with treatment team in regards to discharge planning. He and his talked over the phone. The p atient identified that they were going to "take a break" while he is working on his recovery in an in tensive way. JOANNE MCNAMARA NP [id number]/[facility] #: [id number]
== END 2018-10-18 14:00 | disposition home or self-care (01) | DRG 753 ==
LOC: ED 16:21 → BSU 10-10 14:19
PROVIDERS: ADMIT Psychiatry & Neurology Psychiatry; ATTEND Psychiatry & Neurology Psychiatry
PROC: GZHZZZZ Group Psychotherapy (ICD-10-PCS; principal; 2018-10-10)
DX: F31.9 Bipolar disorder, unspecified (principal); E66.3 Overweight; E11.9 Type 2 diabetes mellitus without complications; I10 Essential (primary) hypertension; E78.00 Pure hypercholesterolemia, unspecified; Z68.34 Body mass index [BMI] 34.0-34.9, adult; Z79.4 Long term (current) use of insulin; Z91.5 Personal history of self-harm; Z81.8 Family history of other mental and behavioral disorders; Z83.49 Family history of other endocrine, nutritional and metabolic diseases
CPT/HCPCS: 36415; 80053; 80061; 80320; 80329; 83036; 84443; 85025; 90853; 96130; 99222; 99231; 99232; 99238; 99284; A9270-GY; G0480

== ENCOUNTER 2019-10-17 12:05 | Inpatient (IN) ==
[2019-10-17] MEDS ORDERED: Al Hydrox/Mg Hydrox/Simet LIQ 30 ML UDC PO PRN (12:35)
[2019-10-17] MEDS: Insulin GLARGINE 100 un/ml 10 ml VIAL SUBCUT SCH (18:15)
[2019-10-18] MEDS: Vitamin THERAPEUTIC TAB PO SCH (09:42)
[2019-10-18] MEDS: Insulin GLARGINE 100 un/ml 10 ml VIAL SUBCUT SCH (17:37)
[2019-10-19] MEDS: Vitamin THERAPEUTIC TAB PO SCH (08:25)
[2019-10-19] MEDS: Insulin GLARGINE 100 un/ml 10 ml VIAL SUBCUT SCH (18:39)
[2019-10-20 08:18] LABS: HDL Cholesterol 29.6 mg/dL
[2019-10-20] MEDS: Vitamin THERAPEUTIC TAB PO SCH (08:47)
[2019-10-20] MEDS: Insulin GLARGINE 100 un/ml 10 ml VIAL SUBCUT SCH (17:22)
[2019-10-21] MEDS: Vitamin THERAPEUTIC TAB PO SCH (09:03)
[2019-10-21] MEDS: Insulin GLARGINE 100 un/ml 10 ml VIAL SUBCUT SCH (17:40)
[2019-10-22] MEDS: Vitamin THERAPEUTIC TAB PO SCH (09:03)
[2019-10-22] MEDS: Insulin GLARGINE 100 un/ml 10 ml VIAL SUBCUT SCH (17:58)
[2019-10-23] MEDS: Vitamin THERAPEUTIC TAB PO SCH (08:32)
[2019-10-23] MEDS: Insulin GLARGINE 100 un/ml 10 ml VIAL SUBCUT SCH (17:50)
[2019-10-24] MEDS: Vitamin THERAPEUTIC TAB PO SCH (08:58)
[2019-10-24] MEDS: Insulin GLARGINE 100 un/ml 10 ml VIAL SUBCUT SCH (19:39)
[2019-10-25] MEDS: Vitamin THERAPEUTIC TAB PO SCH (09:03)
[2019-10-25] MEDS: Insulin GLARGINE 100 un/ml 10 ml VIAL SUBCUT SCH (17:44)
[2019-10-26] MEDS: Vitamin THERAPEUTIC TAB PO SCH (09:43)
[2019-10-26] MEDS: Insulin GLARGINE 100 un/ml 10 ml VIAL SUBCUT SCH (18:23)
[2019-10-27] MEDS: Vitamin THERAPEUTIC TAB PO SCH (09:18)
[2019-10-27] MEDS: Insulin GLARGINE 100 un/ml 10 ml VIAL SUBCUT SCH (18:22)
[2019-10-28] MEDS: Vitamin THERAPEUTIC TAB PO SCH (09:17)
[2019-10-28] MEDS: Insulin GLARGINE 100 un/ml 10 ml VIAL SUBCUT SCH (20:09)
[2019-10-29] MEDS: Vitamin THERAPEUTIC TAB PO SCH (09:26)
[2019-10-29] MEDS: Insulin GLARGINE 100 un/ml 10 ml VIAL SUBCUT SCH (21:10)
[2019-10-30] MEDS: Vitamin THERAPEUTIC TAB PO SCH (08:46)
[2019-10-30] MEDS: Insulin GLARGINE 100 un/ml 10 ml VIAL SUBCUT SCH (18:45)
[2019-10-31] MEDS: Vitamin THERAPEUTIC TAB PO SCH (09:10)
[2019-10-31] MEDS: Insulin GLARGINE 100 un/ml 10 ml VIAL SUBCUT SCH (18:59)
[2019-11-01] MEDS: Vitamin THERAPEUTIC TAB PO SCH (08:36)
[2019-11-01] MEDS: Insulin GLARGINE 100 un/ml 10 ml VIAL SUBCUT SCH (18:17)
[2019-11-02] MEDS: Vitamin THERAPEUTIC TAB PO SCH (09:17)
[2019-11-02] MEDS: Insulin GLARGINE 100 un/ml 10 ml VIAL SUBCUT SCH (18:02)
[2019-11-03] MEDS: Vitamin THERAPEUTIC TAB PO SCH (09:04)
[2019-11-03] MEDS: Insulin GLARGINE 100 un/ml 10 ml VIAL SUBCUT SCH (18:04)
[2019-11-04] MEDS: Vitamin THERAPEUTIC TAB PO SCH (09:09)
[2019-11-04] MEDS: Insulin GLARGINE 100 un/ml 10 ml VIAL SUBCUT SCH (18:09)
[2019-11-05] MEDS: Vitamin THERAPEUTIC TAB PO SCH (08:58)
[2019-11-05] MEDS: Insulin GLARGINE 100 un/ml 10 ml VIAL SUBCUT SCH (18:22)
[2019-11-06] MEDS: Vitamin THERAPEUTIC TAB PO SCH (09:06)
[2019-11-06] MEDS: Insulin GLARGINE 100 un/ml 10 ml VIAL SUBCUT SCH (18:26)
[2019-11-07] MEDS: Vitamin THERAPEUTIC TAB PO SCH (08:57)
[2019-11-07] MEDS: Insulin GLARGINE 100 un/ml 10 ml VIAL SUBCUT SCH (18:04)
[2019-11-08] MEDS: Vitamin THERAPEUTIC TAB PO SCH (09:55)
[2019-11-08] MEDS: Insulin GLARGINE 100 un/ml 10 ml VIAL SUBCUT SCH (17:45)
[2019-11-09] MEDS: Vitamin THERAPEUTIC TAB PO SCH (08:53)
[2019-11-09] MEDS: Insulin GLARGINE 100 un/ml 10 ml VIAL SUBCUT SCH (17:42)
[2019-11-10] MEDS: Vitamin THERAPEUTIC TAB PO SCH (09:06)
[2019-11-10] MEDS: Insulin GLARGINE 100 un/ml 10 ml VIAL SUBCUT SCH (18:26)
[2019-11-11 08:44] VITALS: BP 125/82
[2019-11-11] MEDS: Vitamin THERAPEUTIC TAB PO SCH (09:07)
== END 2019-11-11 10:00 | disposition home or self-care (01) | DRG 753 ==
LOC: BSU 12:35
PROVIDERS: ADMIT Psychiatry & Neurology Psychiatry; ATTEND Psychiatry & Neurology Psychiatry